=== PATIENT | female | born 1985 | race Hispanic/Latino ===

== ENCOUNTER 2023-01-10 08:40 | Emergency (ER) | payer BC ==
[2023-01-10 08:58] LABS: Absolute Lymphocytes (CBC) 2.1 K/uL (0.7-4.9); Hematocrit 41.3 % (36.0-45.0); Lymphocytes % 27.3 % (15.3-44.8); MCV 87.1 fL (80-100); MPV 7.8 fL (7.6-11.3); Platelets 283 thou/uL (152-406); RBC Red Blood Cell Count 4.74 M/uL (3.86-4.86)
[2023-01-10] MEDS ORDERED: ONDANSETRON 4 MG/2 ML VIAL ONE (09:06)
[2023-01-10] MEDS ORDERED: FAMOTIDINE 20 MG/2 ML VIAL IV ONE (09:06)
[2023-01-10] MEDS ORDERED: DICYCLOMINE HCL 10 MG CAP ONE (09:06)
[2023-01-10] MEDS ORDERED: NA CHLORIDE 0.9% 1,000 ML ONE (09:06)
[2023-01-10 09:16] LABS: Albumin 4.3 g/dL (3.4-5.0); Potassium 3.2 mEq/L (3.5-5.1); Protein, Total 8.1 g/dL (6.4-8.2)
[2023-01-10] MEDS ORDERED: POTASSIUM CL SA 10 MEQ TAB PO ONE (09:53)
--- NOTE | 2023-01-10 10:29 | ER ---
Nurse's Notes [facility] Name: Ana Watson Age: 37 yrs Sex: Female : 1985 Arrival Date: 01/10/2023 Time: 08:40 Bed 20 Private MD: Diagnosis: Nausea with vomiting, unspecified;Diarrhea, unspecified Presentation: 01/10 08:50 Chief complaint: N/V/D x 4 days. Not tolerating fluids. Coronavirus screen: Client hb presents with at least one sign or symptom that may indicate coronavirus-19. Provider contacted for isolation considerations. Ebola Screen: No symptoms or risks identified at this time. Initial Sepsis Screen: Does the patient meet any 2 criteria? No. Patient's initial sepsis screen is negative. Does the patient have a suspected source of infection? No. Patient's initial sepsis screen is negative. Risk Assessment: Do you want to hurt yourself or someone else? Patient reports no desire to harm self or others. Onset of symptoms was January 06, 2023. 08:50 Method Of Arrival: Ambulatory hb 08:50 Acuity: EVONNE 3 hb Triage Assessment: 08:52 General: Appears in no apparent distress. Behavior is calm, cooperative. Pain: Pain hb currently is 5 out of 10 on a pain scale. Neuro: Level of Consciousness is awake, alert, obeys commands, Oriented to person, place, time, situation. Cardiovascular: Patient's skin is warm and dry. Respiratory: Respiratory effort is even, unlabored, Respiratory pattern is regular, symmetrical. GI: Reports cramping, diarrhea, intolerance of fluids, intolerance of food, nausea, vomiting. 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 - Social history:: Smoking status: Patient denies any tobacco usage or history of. Screenin:52 [facility] ED Fall Risk Assessment (Adult) Score/Fall Risk Level 0 - 2 = Low Risk hb Oriented to surroundings, Maintained a safe environment. Abuse screen: Denies threats or abuse. Denies injuries from another. Nutritional screening: No deficits noted. Tuberculosis screening: No symptoms or risk factors identified. Assessment: 09:04 General: Appears ill, Behavior is calm, cooperative, appropriate for age. Pain: ap3 Complains of pain in abdomen and throat. Neuro: Level of Consciousness is awake, alert, obeys commands, Oriented to person, place, time, situation. Cardiovascular: Patient's skin is warm and dry. Respiratory: Airway is patent Respiratory effort is even, unlabored, Respiratory pattern is regular, symmetrical. GI: Reports lower abdominal pain, upper abdominal pain, diarrhea, nausea, vomiting. Vital Signs: 08:50 BP 140 / 98; Pulse 94; Resp 16; Temp 98.3(O); Pulse Ox 97% on R/A; Weight 90.72 kg; hb Height 5 ft. 2 in. ; Pain 5/10; 10:02 BP 105 / 66; Pulse 64; Pulse Ox 99% on R/A; ap3 08:50 Body Mass Index 36.58 (90.72 kg, 157.48 cm) hb 08:50 Pain Scale: Adult hb ED Course: 08:43 Patient arrived in ED. rg4 08:43 Altagracia Concepcion FNP-C [facility] kb 08:43 Víctor Arizmendi MD is Attending Physician. kb 08:46 Charity Caceres, GIO is Primary Nurse. ap3 08:51 Triage completed. hb 08:52 Arm band placed on. hb 08:52 Patient has correct armband on for positive identification. Bed in low position. Call hb light in reach. 08:53 Initial lab(s) drawn, by me, sent to lab. Inserted saline lock: 20 gauge in right ap3 antecubital area, using aseptic technique. Blood collected. 08:53 CBC with Diff Sent. ap3 08:53 CMP Sent. ap3 08:53 Lipase Sent. ap3 09:08 Provided Education on: education prior to administration. ap3 10:50 No provider procedures requiring assistance completed. IV discontinued, intact, ap3 bleeding controlled, No redness/swelling at site. Pressure dressing applied. Administered Medications: 09:03 Drug: NS 0.9% IV 1000 ml Route: IV; Rate: 1 bolus; Site: right antecubital; ap3 10:49 Follow up: IV Status: Completed infusion ap3 09:03 Drug: Famotidine IVP 20 mg Route: IVP; Site: right antecubital; ap3 10:49 Follow up: Response: No adverse reaction ap3 09:03 Drug: Ondansetron IVP 4 mg Route: IVP; Site: right antecubital; ap3 10:49 Follow up: Response: No adverse reaction; Nausea is decreased ap3 09:03 Drug: Dicyclomine PO 20 mg Route: PO; ap3 09:45 Follow up: Response: No adverse reaction ap3 09:45 Drug: Potassium Chloride PO 40 mEq Route: PO; ap3 10:49 Follow up: Response: No adverse reaction ap3 Medication: 08:52 VIS not applicable for this client. hb Outcome: 10:29 Discharge ordered by . kb 10:50 Discharged to home ambulatory. ap3 10:50 Condition: good 10:50 Discharge instructions given to patient, Instructed on discharge instructions, follow up and referral plans. medication usage, Demonstrated understanding of instructions, follow-up care, medications, Prescriptions given X 2. 10:58 Patient left the ED. ap3 Signatures: Altagracia Concepcion, WELDER ASSISTANT-C WELDER ASSISTANT-Allison Brenner, RN Migdalia José rg4 Charity Caceres RN RN ap3
--- NOTE | 2023-01-10 10:29 | EDPHYS ---
Physician Documentation [facility] Name: Ana Watson Age: 37 yrs Sex: Female : 1985 Arrival Date: 01/10/2023 Time: 08:40 Bed 20 Private MD: ED Physician Víctor Arizmendi HPI: 01/10 10:05 This 37 yrs old Female presents to ER via Ambulatory with complaints of kb Nausea/Vomiting/Diarrhea. 10:05 The patient presents to the emergency department with nausea, vomiting, diarrhea. kb Onset: The symptoms/episode began/occurred 4 day(s) ago. Possible causes: started ozempic injections for weight loss, purchased in [place]. The symptoms are aggravated by nothing. The symptoms are alleviated by nothing. Associated signs and symptoms: Pertinent positives: dysuria, nausea, vomiting, Pertinent negatives: abdominal pain, fever. Severity of symptoms: At their worst the symptoms were moderate in the emergency department the symptoms are unchanged. The patient has not experienced similar symptoms in the past. The patient has not recently seen a physician. Pt reports n/v/d for 4 days, unable to tolerate anything by mouth. States she bought ozempic from [place] and started doing weekly injections 2 months ago. States it normally makes her nauseous for a day or two after the injection, but has never caused her to have vomiting and diarrhea. States these symptoms started the day after her last injection. 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 - Social history:: Smoking status: Patient denies any tobacco usage or history of. ROS: 10:03 Constitutional: Negative for fever, chills, and weight loss. kb 10:03 Abdomen/GI: Positive for nausea, vomiting, and diarrhea, abdominal cramps, Negative for abdominal pain. 10:03 All other systems are negative. Exam: 10:03 Constitutional: This is a well developed, well nourished patient who is awake, alert, kb and in no acute distress. Head/Face: Normocephalic, atraumatic. ENT: Moist Mucous membranes Cardiovascular: Regular rate and rhythm with a normal S1 and S2. No gallops, murmurs, or rubs. No pulse deficits. Respiratory: Respirations even and unlabored. No increased work of breathing. Talking in full sentences Abdomen/GI: Soft, non-tender. No distention Skin: Warm, dry with normal turgor. Normal color. MS/ Extremity: Pulses equal, no cyanosis. Neurovascular intact. Full, normal range of motion. Neuro: Awake and alert, GCS 15, oriented to person, place, time, and situation. Moves all extremities. Normal gait. Vital Signs: 08:50 BP 140 / 98; Pulse 94; Resp 16; Temp 98.3(O); Pulse Ox 97% on R/A; Weight 90.72 kg; hb Height 5 ft. 2 in. ; Pain 5/10; 10:02 BP 105 / 66; Pulse 64; Pulse Ox 99% on R/A; ap3 08:50 Body Mass Index 36.58 (90.72 kg, 157.48 cm) hb 08:50 Pain Scale: Adult hb MDM: 08:43 Patient medically screened. kb 10:03 Differential diagnosis: Nonspecific abd pain, viral gastroenteritis, medication side kb effect. Data reviewed: vital signs, nurses notes. Test considered but Not performed: CT: CT abd considered, but pt has no abd tenderness, WBC normal, pt nontoxic in appearance and afebrile. Counseling: I had a detailed discussion with the patient and/or guardian regarding: the historical points, exam findings, and any diagnostic results supporting the discharge/admit diagnosis, lab results, the need for outpatient follow up, a family practitioner, to return to the emergency department if symptoms worsen or persist or if there are any questions or concerns that arise at home. 10:04 ED course: Pt reports she is feeling better after treatment. Tolerating po intake. kb 01/10 08:47 Order name: CBC with Diff; Complete Time: 09:12 kb 01/10 08:47 Order name: CMP; Complete Time: 09:16 kb 01/10 08:47 Order name: Lipase; Complete Time: 09:16 kb 01/10 08:47 Order name: IV Saline Lock; Complete Time: 08:53 kb 01/10 08:47 Order name: Labs collected and sent; Complete Time: 08:53 kb 01/10 09:27 Order name: PO challenge; Complete Time: 09:39 kb Administered Medications: 09:03 Drug: NS 0.9% IV 1000 ml Route: IV; Rate: 1 bolus; Site: right antecubital; ap3 10:49 Follow up: IV Status: Completed infusion ap3 09:03 Drug: Famotidine IVP 20 mg Route: IVP; Site: right antecubital; ap3 10:49 Follow up: Response: No adverse reaction ap3 09:03 Drug: Ondansetron IVP 4 mg Route: IVP; Site: right antecubital; ap3 10:49 Follow up: Response: No adverse reaction; Nausea is decreased ap3 09:03 Drug: Dicyclomine PO 20 mg Route: PO; ap3 09:45 Follow up: Response: No adverse reaction ap3 09:45 Drug: Potassium Chloride PO 40 mEq Route: PO; ap3 10:49 Follow up: Response: No adverse reaction ap3 Disposition: 12:23 Co-signature as Attending Physician, Víctor Arizmendi MD I reviewed the patient's care rt provided by the Advanced Practice Provider and agree with the diagnosis and treatment plan. Disposition Summary: 01/10/23 10:29 Discharge Ordered Location: Home kb Condition: Stable kb Diagnosis - Nausea with vomiting, unspecified kb - Diarrhea, unspecified kb Followup: kb - With: Emergency Department - When: As needed - Reason: Worsening of condition Followup: kb - With: Private Physician - When: 2 - 3 days - Reason: Recheck today's complaints, Continuance of care, Re-evaluation by your physician Discharge Instructions: - Discharge Summary Sheet kb - Food Choices to Help Relieve Diarrhea, Adult kb - Viral Gastroenteritis, Adult, [id number] kb Forms: - Work release form kb - Medication Reconciliation Form kb - Thank You Letter kb - Antibiotic Education kb - Prescription Opioid Use kb - Patient Portal Instructions kb Prescriptions: - ondansetron 4 mg Oral Tablet,disintegrating - take 1 tablet by ORAL route every 6 hours As needed; 12 tablet; Refills: 0, kb Product Selection Permitted - dicyclomine 20 mg Oral Tablet - take 1 tablet by ORAL route 4 times per day As needed; 12 tablet; Refills: 0, kb Product Selection Permitted Signatures: [facility] Altagracia Mejia, DIRECTOR OF GOLF-C DIRECTOR OF GOLF-Ckb Allison Stiles, RN RN hb Charity Caceres RN RN ap3 Víctor Arizmendi MD MD rt
[2023-01-10 11:24] VITALS: TEMP 98.3
[2023-01-10 11:25] VITALS: BP 105/66; O2SAT 99
== END 2023-01-10 10:58 | disposition home or self-care (01) ==
LOC: ER 08:40
DX: R11.2 Nausea with vomiting, unspecified (principal); R19.7 Diarrhea, unspecified; R30.0 Dysuria
CPT/HCPCS: 96361; 85025; 36415; 83690; 80053; 96375; 96374; 99284; J2405; J7030

== ENCOUNTER 2023-11-26 12:11 | Emergency (ER) | payer BC ==
--- NOTE | 2023-11-26 13:26 | RAD REPORT ---
EXAM DESCRIPTION: RAD - Chest Single View - 11/26/2023 1:06 pm CLINICAL HISTORY: DYSPNEA COMPARISON: No comparisons FINDINGS: Lines: None. Lungs: No evidence of edema or pneumonia. Pleural: No significant pleural effusions or pneumothorax. Cardiac: The heart size is within normal limits. Mediastinum: Within normal limits. Bones: No acute fractures. Other: None IMPRESSION: No acute cardiopulmonary disease.
[2023-11-26 13:35] LABS: Absolute Lymphocytes (CBC) 2.6 K/uL (0.7-4.9); Absolute Monocytes 0.5 K/uL (0.1-1.3); Absolute Neutrophil 3.7 K/uL (1.8-8.0); Basophils % 0.7 % (0-1.3); Eosinophils % 0.5 % (0-4.4); Hematocrit 40.7 % (36.0-45.0); Lymphocytes % 37.3 % (15.3-44.8); MCH 30.8 pg (27.0-35.0); MCHC 34.4 g/dL (32.0-36.0); MCV 89.4 fL (80-100); MPV 8.2 fL (7.6-11.3); Monocytes % 7.6 % (3.3-12.3); Neutrophils % 53.9 % (41.7-73.7); Nucleated Red Blood Cells % 0.2 % (0-0); Platelets 264 thou/uL (152-406); RBC Red Blood Cell Count 4.55 M/uL (3.86-4.86); Red Cell Distribution Width 12.6 % (12.1-15.2)
[2023-11-26 13:37] LABS: PT Prothrombin Time 13.7 SECONDS (9.4-12.5); Protime INR 1.25
[2023-11-26 13:42] LABS: Specific Gravity 1.006 (1.005-1.030); Sqamous Epithelial <5 /HPF (None Seen); Urine Bacteria 20-50 /HPF (<20); Urine Bilirubin NEGATIVE (Negative); Urine Blood Negative (Negative); Urine Clarity Turbid (Clear); Urine Color Colorless (Yellow); Urine Culture Reflex Order NOT NEEDED; Urine Glucose NEGATIVE (Negative); Urine Ketones NEGATIVE (Negative); Urine Microscopic Reflex YN ORDER UMIC; Urine Mucus Slight /HPF (None Seen); Urine Nitrite NEGATIVE (Negative); Urine Protein NEGATIVE (Negative); Urine RBC <5 /HPF (None Seen); Urine Urobilinogen Normal (Normal); Urine WBC <5 /HPF (<5); Urine pH 7.5 (5.0-7.0)
[2023-11-26] MEDS ORDERED: NA CHLORIDE 0.9% 1,000 ML ONE (13:44)
[2023-11-26 14:00] LABS: ALT/SGPT 35 U/L (13-56); Albumin 4.4 g/dL (3.4-5.0); Albumin/Globulin Ratio 1.3 (1.1-1.8); Alkaline Phosphatase 49 U/L (45-117); Anion Gap 8.3 mEq/L (5.0-15.0); BUN Blood Urea Nitrogen 10 mg/dL (7-18); Bicarbonate 27 mEq/L (21-32); Bilirubin Direct 0.2 mg/dL (0-0.2); Bilirubin Indirect, Calculated 0.4 mg/dL (0.2-0.8); Bilirubin Total 0.6 mg/dL (0.2-1.0); Globulin 3.4 g/dL (2.3-3.5); Glomerular Filtration Rate 81 ml/min (=/>90); Glucose Level 77 mg/dL (74-106); Magnesium 1.8 mg/dL (1.6-2.4); NT PRO-BNP 7 pg/mL (<125); Potassium 3.3 mEq/L (3.5-5.1); Protein, Total 7.8 g/dL (6.4-8.2); Sodium Level 137 mEq/L (136-145)
[2023-11-26 14:01] LABS: AST/SGOT < 10 U/L (15-37); Troponin High Sensitivity < 3.0 pg/mL (<58.9)
[2023-11-26] MEDS ORDERED: POTASSIUM 25 MEQ EFFERV TAB ONE (15:06)
--- NOTE | 2023-11-26 15:24 | EDPHYS ---
Physician Documentation [facility] Name: Ana Watson Age: 38 yrs Sex: Female : 1985 Arrival Date: 11/26/2023 Time: 12:11 Bed 19 Private MD: ED Physician Ramiro Owusu HPI: 11/25 15:16 This 38 yrs old Female presents to ER via Ambulatory with complaints of debbie Shortness Of Breath, Dizziness, Numbness. 15:16 The patient has shortness of breath at rest, with light activity. Onset: The debbie symptoms/episode began/occurred just prior to arrival, this morning. Duration: The symptoms are intermittent, with episodes lasting seconds at a time. The patient's shortness of breath has no apparent modifying factors. Associated signs and symptoms: The patient has no apparent associated signs or symptoms. Historical: - Allergies: 12:32 No Known Allergies; tl4 - Home Meds: 12:32 Mounjaro 7.5 mg/0.5 mL subcutaneous Pen Injector every week [Active]; tl4 - PMHx: 12:32 None; tl4 - PSHx: 12:32 section; Tonsillectomy; tl4 - Immunization history:: Adult Immunizations unknown. - Infectious Disease History:: Denies. - Social history:: Smoking status: Patient denies any tobacco usage or history of. ROS: 15:17 Constitutional: Negative for fever, chills, and weight loss, Eyes: Negative for injury, debbie pain, redness, and discharge, ENT: Negative for injury, pain, and discharge, Neck: Negative for injury, pain, and swelling, Cardiovascular: Negative for chest pain, palpitations, and edema, Abdomen/GI: Negative for abdominal pain, nausea, vomiting, diarrhea, and constipation, Back: Negative for injury and pain, : Negative for injury, bleeding, discharge, and swelling, MS/Extremity: Negative for injury and deformity, Skin: Negative for injury, rash, and discoloration, Psych: Negative for depression, anxiety, suicide ideation, homicidal ideation, and hallucinations, Allergy/Immunology: Negative for hives, rash, and allergies, Endocrine: Negative for neck swelling, polydipsia, polyuria, polyphagia, and marked weight changes, Hematologic/Lymphatic: Negative for swollen nodes, abnormal bleeding, and unusual bruising, 15:17 Respiratory: Positive for cough, shortness of breath, 15:17 Abdomen/GI: Positive for rectal bleeding, 15:17 Neuro: Positive for near syncope, Exam: 15:17 Constitutional: This is a well developed, well nourished patient who is awake, alert, debbie and in no acute distress. Head/Face: Normocephalic, atraumatic. Eyes: Pupils equal round and reactive to light, extra-ocular motions intact. Lids and lashes normal. Conjunctiva and sclera are non-icteric and not injected. Cornea within normal limits. Periorbital areas with no swelling, redness, or edema. ENT: Nares patent. No nasal discharge, no septal abnormalities noted. Tympanic membranes are normal and external auditory canals are clear. Oropharynx with no redness, swelling, or masses, exudates, or evidence of obstruction, uvula midline. Mucous membranes moist. Neck: Trachea midline, no thyromegaly or masses palpated, and no cervical lymphadenopathy. Supple, full range of motion without nuchal rigidity, or vertebral point tenderness. No Meningismus. Chest/axilla: Normal chest wall appearance and motion. Nontender with no deformity. No lesions are appreciated. Cardiovascular: Regular rate and rhythm with a normal S1 and S2. No gallops, murmurs, or rubs. Normal PMI, no JVD. No pulse deficits. Respiratory: Lungs have equal breath sounds bilaterally, clear to auscultation and percussion. No rales, rhonchi or wheezes noted. No increased work of breathing, no retractions or nasal flaring. Abdomen/GI: Soft, non-tender, with normal bowel sounds. No distension or tympany. No guarding or rebound. No evidence of tenderness throughout. Back: No spinal tenderness. No costovertebral tenderness. Full range of motion. Skin: Warm, dry with normal turgor. Normal color with no rashes, no lesions, and no evidence of cellulitis. MS/ Extremity: Pulses equal, no cyanosis. Neurovascular intact. Full, normal range of motion. Neuro: Awake and alert, GCS 15, oriented to person, place, time, and situation. Cranial nerves II-XII grossly intact. Motor strength 5/5 in all extremities. Sensory grossly intact. Cerebellar exam normal. Normal gait. Psych: Awake, alert, with orientation to person, place and time. Behavior, mood, and affect are within normal limits. 15:17 ECG was reviewed by the Attending Physician. 15:17 Musculoskeletal/extremity: DVT Exam: No signs of deep vein thrombosis. no pain, no swelling, no tenderness, negative Homans' sign noted on exam, no appreciated bluish discoloration, no erythema, no increased warmth, Vital Signs: 12:30 BP 141 / 82; Pulse 84; Resp 16; Temp 97.9(TE); Pulse Ox 100% on R/A; Weight 86.18 kg; tl4 Height 5 ft. 2 in. ; Pain 0/10; 13:30 BP 118 / 65; Pulse 79; Resp 18; Pulse Ox 98% on R/A; db 14:30 BP 138 / 76; Pulse 87; Resp 16; Pulse Ox 100% on R/A; db 15:30 BP 127 / 73 Supine; Pulse 74; Resp 18; Pulse Ox 100% on R/A; db 15:35 BP 123 / 75 Sitting; Pulse 82; db 15:40 BP 117 / 86 Standing; Pulse 90; db 12:30 Body Mass Index 34.75 (86.18 kg, 157.48 cm) tl4 12:30 Pain Scale: Adult tl4 [place] Coma Score: 15:17 Eye Response: spontaneous(4). Motor Response: obeys commands(6). Verbal Response: debbie oriented(5). Total: 15. MDM: 12:36 Patient medically screened. debbie 15:20 Differential diagnosis: Anemia Anxiety Reaction Bronchitis gastritis, diverticulitis, debbie hemorrhoids, hemorrhagic shock, varices, pneumonia, Pneumothorax pulmonary edema, Pulmonary Embolism reactive airway disease, Unstable Angina. Antibiotic administration: Not indicated. Differential Diagnosis: cardiac arrhythmia, cerebrovascular accident, GI bleed, idiopathic syncope, , seizure, sepsis, transient ischemic attack, vasovagal episode. Immunization status:. Data reviewed: vital signs, nurses notes, lab test result(s), EKG, radiologic studies, plain films. Consideration of Admission/Observation Escalation of care including admission/observation considered. I considered the following discharge prescriptions or medication management in the emergency department Medications were administered in the Emergency Department. See MAR. Test considered but Not performed: CT: no ct abd pel. 11/25 12:33 Order name: Basic Metabolic Panel; Complete Time: 14:46 debbie 11/25 12:33 Order name: CBC with Diff; Complete Time: 14:46 [facility] 11/25 12:33 Order name: LFT's; Complete Time: 14:46 [facility] 11/25 12:33 Order name: Magnesium; Complete Time: 14:46 [facility] 11/25 12:33 Order name: NT PRO-BNP; Complete Time: 14:46 [facility] 11/25 12:33 Order name: Troponin HS; Complete Time: 14:46 [facility] 11/25 12:33 Order name: D-Dimer; Complete Time: 14:46 [facility] 11/25 12:33 Order name: Urinalysis w/ reflexes; Complete Time: 14:46 [facility] 11/25 12:33 Order name: PREGU; Complete Time: 14:46 [facility] 11/25 13:31 Order name: Protime (+INR); Complete Time: 14:46 [facility] 11/25 12:33 Order name: XRAY Chest (1 view); Complete Time: 14:46 [facility] 11/25 12:33 Order name: EKG; Complete Time: 12:33 [facility] 11/25 12:33 Order name: Cardiac monitoring; Complete Time: 13:29 [facility] 11/25 12:33 Order name: EKG - Nurse/Tech; Complete Time: 13:26 [facility] 11/25 12:33 Order name: IV Saline Lock; Complete Time: 13:26 [facility] 11/25 12:33 Order name: Labs collected and sent; Complete Time: 13:26 [facility] 11/25 12:33 Order name: O2 Per Protocol; Complete Time: 13:29 [facility] 11/25 12:33 Order name: O2 Sat Monitoring; Complete Time: 13:29 [facility] 11/25 14:51 Order name: PO challenge: juice; Complete Time: 15:15 [facility] 11/25 15:34 Order name: Orthostatics; Complete Time: 15:51 [facility] EC:17 Rate is 81 beats/min. Rhythm is regular. QRS [place] is Normal. NE interval is normal. QRS debbie interval is normal. QT interval is normal. No Q waves. T waves are Normal. No ST changes noted. Clinical impression: Normal ECG and No evidence of ischemia. Interpreted by me. Reviewed by me. Administered Medications: 13:48 Drug: NS 0.9% IV 1000 ml IV at 1 bolus Per protocol; 1000 mL bolus Route: IV; Rate: 1 db bolus; Site: right antecubital; 15:56 Follow up: Response: No adverse reaction; IV Status: Completed infusion; IV Intake: db 1000ml 15:05 Drug: Potassium PO Effervescent Tablet 25 mEq PO once; dissolve in 4 ounces of water or db juice Route: PO; 15:56 Follow up: Response: No adverse reaction db 15:36 Drug: Meclizine PO 50 mg PO once Route: PO; db 15:56 Follow up: Response: No adverse reaction db Disposition Summary: 11/26/23 15:23 Discharge Ordered Notes: Location: Home debbie Problem: new debbie Symptoms: have improved debbie Condition: Stable debbie Diagnosis - Syncope Near debbie - GI Bleed/ Gastrointestinal hemorrhage, unspecified - lower debbie - Hypokalemia debbie - Dizziness and giddiness debbie Followup: debbie - With: Private Physician - When: 2 - 3 days - Reason: Recheck today's complaints, Continuance of care, Re-evaluation by your physician Followup: debbie - With: Fabio Zelaya MD - When: Tomorrow - Reason: Recheck today's complaints, Continuance of care, Re-evaluation by your physician Discharge Instructions: - Discharge Summary Sheet debbie - Potassium Content of Foods debbie - Gastrointestinal Bleeding debbie - Near-Syncope debbie - Rectal Bleeding debbie - Syncope debbie - Weakness debbie - Near-Syncope, [id number] debbie - Weakness, Iwyx-te-Iajz debbie - Rectal Bleeding, [id number] debbie - Hypokalemia debbie - Dizziness, Egps-ar-Ebge debbie - Lower Gastrointestinal Bleeding debbie Forms: - Medication Reconciliation Form debbie - Antibiotic Education debbie - Prescription Opioid Use debbie - Patient Portal Instructions debbie - Leadership Thank You Letter debbie - Work release form iw Signatures: Dispatcher [employer] Ramiro Lau MD MD cha Benton, Danielle RN RN Freddie Herrera RN RN tl4 Corrections: (The following items were deleted from the chart) 13:31 12:33 PROTIME (+INR)+[email or web address].BRZ ordered. RENETTA JACKSON
--- NOTE | 2023-11-26 15:24 | ER ---
Nurse's Notes [facility] Name: Ana Watson Age: 38 yrs Sex: Female : 1985 Arrival Date: 11/26/2023 Time: 12:11 Bed 19 Private MD: Diagnosis: Syncope Near;GI Bleed/ Gastrointestinal hemorrhage, unspecified-lower;Hypokalemia;Dizziness and giddiness Presentation: 11/25 12:30 Chief complaint: Patient states: Pt c/o increased rectal bleeding associated with tl4 hemorrhoids. Pt states today at 1100 she had sudden onset of whole body feeling numb and dizziness. Pt denies any similar history. Coronavirus screen: At this time, the client does not indicate any symptoms associated with coronavirus-19. Ebola Screen: No symptoms or risks identified at this time. Initial Sepsis Screen: Does the patient meet any 2 criteria? No. Patient's initial sepsis screen is negative. Does the patient have a suspected source of infection? No. Patient's initial sepsis screen is negative. Risk Assessment: Do you want to hurt yourself or someone else? Patient reports no desire to harm self or others. Onset of symptoms was November 26, 2023 at 11:00. 12:30 Method Of Arrival: Ambulatory tl4 12:30 Acuity: EVONNE 3 tl4 Triage Assessment: 12:34 General: Appears uncomfortable, Behavior is calm, cooperative. Pain: Denies pain. EENT: tl4 No signs and/or symptoms were reported regarding the EENT system. Neuro: Reports dizziness, weakness. Cardiovascular: Denies chest pain, Capillary refill < 3 seconds Patient's skin is warm and dry. Respiratory: Reports shortness of breath Onset: The symptoms/episode began/occurred this morning, the patient has mild shortness of breath. GI: Reports rectal bleeding. Historical: - Allergies: 12:32 No Known Allergies; tl4 - Home Meds: 12:32 Mounjaro 7.5 mg/0.5 mL subcutaneous Pen Injector every week [Active]; tl4 - PMHx: 12:32 None; tl4 - PSHx: 12:32 section; Tonsillectomy; tl4 - Immunization history:: Adult Immunizations unknown. - Infectious Disease History:: Denies. - Social history:: Smoking status: Patient denies any tobacco usage or history of. Screenin:21 [facility] ED Fall Risk Assessment (Adult) History of falling in the last 3 months, db including since admission No falls in past 3 months (0 pts) Confusion or Disorientation No (0 pts) Intoxicated or Sedated No (0 pts) Impaired Gait No (0 pts) Mobility Assist Device Used No (0 pt) Altered Elimination No (0 pt) Score/Fall Risk Level 0 - 2 = Low Risk Oriented to surroundings, Maintained a safe environment. Abuse screen: Denies threats or abuse. Denies injuries from another. Nutritional screening: No deficits noted. Tuberculosis screening: No symptoms or risk factors identified. Assessment: 13:00 Reassessment: Patient appears in no apparent distress at this time. Patient and/or db family updated on plan of care and expected duration. Pain level reassessed. Patient is alert, oriented x 3, equal unlabored respirations, skin warm/dry/pink. General: Appears in no apparent distress. uncomfortable, Behavior is calm, cooperative, appropriate for age. Pain: Denies pain. Neuro: Level of Consciousness is awake, alert, obeys commands, Oriented to person, place, time, situation. Cardiovascular: Reports shortness of breath, Rhythm is regular. Respiratory: Airway is patent Respiratory effort is even, unlabored, Respiratory pattern is regular, symmetrical, Breath sounds are clear. 14:00 Reassessment: Patient appears in no apparent distress at this time. Patient and/or db family updated on plan of care and expected duration. Pain level reassessed. Patient is alert, oriented x 3, equal unlabored respirations, skin warm/dry/pink. 15:00 Reassessment: PT TOLERATED PO CHALLENGE. db 15:35 Reassessment: AT DISCHARGE PATIENT REPORTS FEELING DIZZY. NOTIFIED DR. MORALES. SEE db MAR FOR MEDICATION ADMINISTRATION OF MECLIZINE AND NEW ORDER FOR ORTHOSTATICS SEE VITAL. Vital Signs: 12:30 BP 141 / 82; Pulse 84; Resp 16; Temp 97.9(TE); Pulse Ox 100% on R/A; Weight 86.18 kg; tl4 Height 5 ft. 2 in. ; Pain 0/10; 13:30 BP 118 / 65; Pulse 79; Resp 18; Pulse Ox 98% on R/A; db 14:30 BP 138 / 76; Pulse 87; Resp 16; Pulse Ox 100% on R/A; db 15:30 BP 127 / 73 Supine; Pulse 74; Resp 18; Pulse Ox 100% on R/A; db 15:35 BP 123 / 75 Sitting; Pulse 82; db 15:40 BP 117 / 86 Standing; Pulse 90; db 12:30 Body Mass Index 34.75 (86.18 kg, 157.48 cm) tl4 12:30 Pain Scale: Adult tl4 Ranulfo Coma Score: 15:17 Eye Response: spontaneous(4). Motor Response: obeys commands(6). Verbal Response: debbie oriented(5). Total: 15. ED Course: 12:13 Patient arrived in ED. mg5 12:32 Ramiro Morales MD is Attending Physician. debbie 12:32 Triage completed. tl4 12:35 Arm band placed on right wrist. tl4 13:08 XRAY Chest (1 view) In Process Unspecified. EDMS 13:26 Basic Metabolic Panel Sent. bc6 13:26 CBC with Diff Sent. bc6 13:26 LFT's Sent. bc6 13:26 Magnesium Sent. bc6 13:26 NT PRO-BNP Sent. bc6 13:26 Troponin HS Sent. bc6 13:26 Initial lab(s) drawn, by ED staff, sent to lab. Inserted saline lock: 20 gauge in right bc6 antecubital area, using aseptic technique. Blood collected. 13:44 Krystal Neri, GIO is Primary Nurse. db 15:22 Fabio Zelaya MD is Referral Physician. [facility] 15:22 Patient has correct armband on for positive identification. Bed in low position. Call db light in reach. Side rails up X 1. Provided Education on: LABS AND RADIOLOGY. Client placed on continuous cardiac and pulse oximetry monitoring. NIBP monitoring applied. monitor and storage bin tender on. Pulse ox on. NIBP on. Warm blanket given. Pillow given. 15:55 No provider procedures requiring assistance completed. IV discontinued, intact, db bleeding controlled, No redness/swelling at site. Administered Medications: 13:48 Drug: NS 0.9% IV 1000 ml IV at 1 bolus Per protocol; 1000 mL bolus Route: IV; Rate: 1 db bolus; Site: right antecubital; 15:56 Follow up: Response: No adverse reaction; IV Status: Completed infusion; IV Intake: db 1000ml 15:05 Drug: Potassium PO Effervescent Tablet 25 mEq PO once; dissolve in 4 ounces of water or db juice Route: PO; 15:56 Follow up: Response: No adverse reaction db 15:36 Drug: Meclizine PO 50 mg PO once Route: PO; db 15:56 Follow up: Response: No adverse reaction db Medication: 15:55 VIS not applicable for this client. db Intake: 15:56 IV: 1000ml; Total: 1000ml. db Outcome: 15:23 Discharge ordered by MD. lewis 15:55 Discharged to home ambulatory, db 15:55 Condition: stable 15:55 Discharge instructions given to patient, Instructed on discharge instructions, follow up and referral plans. 15:56 Patient left the ED. db Signatures: Dispatcher [employer] EDMS Ramiro Morales MD MD cha Benton, Danielle, RN RN Vicki Stein [facility] Christin Celis mg5 Freddie Casiano RN RN tl4 Corrections: (The following items were deleted from the chart) 13:31 13:26 PROTIME (+INR)+[email or web address].[email or web address] drawn and sent. [facility] AMORTN
[2023-11-26] MEDS ORDERED: MECLIZINE HCL 12.5 MG TAB ONE (15:36)
[2023-11-26 16:50] VITALS: TEMP 97.9; O2SAT 100
[2023-11-26 17:05] VITALS: BP 117/86
--- NOTE | 2023-11-27 14:10 | EKG ---
Test Date: 2023-11-26 Test Time: 13:20:19 [employer] Loan Coordinator: MOLINA MEASUREMENT RESULTS: Intervals: Rate: 81 MA: 170 QRSD: 72 QT: 386 QTc: 448 [place]: P: 29 MA: 170 QRS: 13 T: 29 INTERPRETIVE STATEMENTS: Normal sinus rhythm Normal ECG No previous ECG available for comparison Electronically Signed On 11-27-23 14:07:16 CDT by Saman Villareal
== END 2023-11-26 15:56 | disposition home or self-care (01) ==
LOC: ER 12:11
DX: R55 Syncope and collapse (principal); K92.2 Gastrointestinal hemorrhage, unspecified; E87.6 Hypokalemia; R42 Dizziness and giddiness; R05.9 Cough, unspecified
CPT/HCPCS: 85025; 81001; 80048; 36415; 83735; 81025; 85610; 85379; 80076; 84484; 83880; 71045; J8597; J7030; 93005; 96360; 96361; 99285